=== PATIENT | female | born 1950 | race Caucasian/White ===

== ENCOUNTER → 2016-11-04 | Outpatient (CLI) | payer OTHER ==
[~2016-11-04] MED LIST: ASPCH81X PO; BIOT50006; CALC500C70 PO; CHOL20007 PO; CINN1CAP2; MULT-506 PO; [UNRECOGNIZED DRUG - OTHER]; [UNRECOGNIZED DRUG - REMARK]
[2016-11-04 12:59] LABS: BASO % 0.5 %; BASO ABS # 0.03 K/uL (0-0.2); COMPLETE YES; EOS % 2.9 %; HEMATOCRIT 41.2 % (37-47); LYMPH % 18.2 %; LYMPH ABS # 1.01 K/uL (1.2-3.4); MEAN CELL VOLUME 96.3 fL (80-100); MEAN CORPUSCULAR HEMOGLOBIN 31.1 pg (25-34); MEAN CORPUSCULAR HGB CONC 32.3 g/dl (32-36); MEAN PLATELET VOLUME 10.1 fL (7.4-10.4); MONO % 8.3 %; NEUT % 70.1 %; PLATELET COUNT 249 K/uL (130-400); RED BLOOD COUNT 4.28 M/uL (4.2-5.4); WHITE BLOOD COUNT 5.56 K/uL (4.8-10.8)
[2016-11-04 13:11] LABS: ALT/SGPT 33 U/L (12-78); BLOOD UREA NITROGEN 26 mg/dl (7-18); BUN/CREATININE RATIO 28.2 (10-20); CARBON DIOXIDE 26 mmol/L (21-32); CHLORIDE 108 mmol/L (98-107); CREATININE 0.92 mg/dl (0.60-1.20); GLUCOSE 141 mg/dl (70-99); POTASSIUM 3.9 mmol/L (3.5-5.1); SODIUM 142 mmol/L (136-145)
[2016-11-04 13:19] LABS: CALCIUM 9.5 mg/dl (8.5-10.1)
[2016-11-04 13:20] LABS: LYME DISEASE AB IGG NEG (NEG)
[2016-11-04 13:21] LABS: ALB/GLOB RATIO 1.3 (0.9-2); ALKALINE PHOSPHATASE 71 U/L (45-117); AST/SGOT 20 U/L (15-37)
[2016-11-04 13:23] LABS: LYME DISEASE AB IGM NEG (NEG)
[2016-11-08 00:22] LABS: RAPID PLASMA REAGIN NONREACTIVE (NONREACT)
--- NOTE | 2016-11-10 10:36 | CODING QUERY MEDICAL NECESSITY ---
CQSUPPORTING DIAGNOSIS NEEDED A supporting diagnosis is required for the test/procedure performed on this patient in order for us to be reimbursed by the patient's insurance. Please provide a supporting diagnosis for the following test/procedure listed below next to the test name along with your signature. *If there is no additional diagnosis for this patient that would support the following test/procedure please document that below next to the test/procedure. Test(s)/Procedure(s) that require a supporting diagnosis: DOS 11/04/16 VITAMIN D VITAMIN B12 SCREENING SEXUALLY TRASMITTED DISEASE ORDERED BY VENU NELSON Provider Signature: Date: Thank you Shyanne Cruz Health Information Management Once completed, please kindly fax back to [phone] For questions please call [phone]
== END | disposition home or self-care (01) ==
LOC: C.LAB1850 09:53
PROVIDERS: ATTEND Physician Assistant
DX: M62.569 Muscle wasting and atrophy, not elsewhere classified, unspecified lower leg (principal); R25.3 Fasciculation; R29.898 Other symptoms and signs involving the musculoskeletal system; R29.2 Abnormal reflex

== ENCOUNTER → 2016-12-05 | Outpatient (CLI) | payer OTHER ==
--- NOTE | 2016-12-05 17:16 | DIAGNOSTIC IMAGING REPORT ---
C-SPINE ROUTINE 4 OR 5 VIEWS CLINICAL HISTORY: Left leg weakness. Scoliosis. COMPARISON STUDY: No previous studies for comparison. FINDINGS: Alignment of the cervical spine is anatomic. C7 is slightly obscured. There is moderate disc space narrowing and osteophytosis at C5-C6. There is mild disc space narrowing and osteophytosis at C6-C7. Prevertebral soft tissues are unremarkable. IMPRESSION: 1. No cervical spine fracture or subluxation although C7 slightly obscured on this exam. 2. [id number] multilevel degenerative disc disease and facet arthrosis, most pronounced at C5-C6. Electronically signed by: Tung Verma M.D. 12/05/2016 5:14 PM Dictated Date/Time: 12/05/2016 5:13 PM
--- NOTE | 2016-12-05 17:27 | DIAGNOSTIC IMAGING REPORT ---
THORACIC SPINE 3 VIEWS ROUTINE CLINICAL HISTORY: Left leg weakness. Scoliosis. COMPARISON STUDY: No previous studies for comparison. FINDINGS: There is mild leftward curvature of the thoracic spine. Vertebral body heights are maintained. There is no fracture or suspicious lesion. The spaces are preserved. There is mild endplate osteophytosis. IMPRESSION: 1. Mild leftward curvature of the thoracic spine. 2. No thoracic spine fracture. 3. Minimal multilevel degenerative disc disease of the thoracic spine. Electronically signed by: Tung Verma M.D. 12/05/2016 5:26 PM Dictated Date/Time: 12/05/2016 5:25 PM
--- NOTE | 2016-12-05 17:28 | DIAGNOSTIC IMAGING REPORT ---
L-SPINE MIN 4 VIEWS ROUTINE CLINICAL HISTORY: Left leg weakness. Scoliosis. COMPARISON: Lumbar spine MRI November 14, 2016. FINDINGS: There is mild dextroscoliosis of the lumbar spine. There is no fracture or suspicious lesion. There is mild disc space narrowing with moderate osteophytosis at L2-L3. There is mild multilevel facet arthrosis. IMPRESSION: 1. No acute lumbar spine fracture. 2. Mild dextroscoliosis of the lumbar spine. 3. Mild disc space narrowing with moderate osteophytosis at L2-L3. Electronically signed by: Tung Verma M.D. 12/05/2016 5:27 PM Dictated Date/Time: 12/05/2016 5:26 PM
== END | disposition home or self-care (01) ==
LOC: C.RAD 16:22
PROVIDERS: ATTEND Psychiatry & Neurology Neurology
DX: R29.898 Other symptoms and signs involving the musculoskeletal system (principal); M41.9 Scoliosis, unspecified; M50.322 Other cervical disc degeneration at C5-C6 level

== ENCOUNTER → 2017-01-04 | Outpatient (CLI) | payer OTHER ==
[2017-01-04 09:39] LABS: HEMATOCRIT 42.4 % (37-47); MEAN CELL VOLUME 93.8 fL (80-100); MEAN CORPUSCULAR HEMOGLOBIN 30.5 pg (25-34); MEAN CORPUSCULAR HGB CONC 32.5 g/dl (32-36); MEAN PLATELET VOLUME 9.9 fL (7.4-10.4); PLATELET COUNT 250 K/uL (130-400); RED BLOOD COUNT 4.52 M/uL (4.2-5.4); WHITE BLOOD COUNT 4.27 K/uL (4.8-10.8)
[2017-01-04 10:12] LABS: ESTIMATED AVERAGE GLUCOSE 126 mg/dl; HA1C FLAG Normal (Normal)
[2017-01-04 10:52] LABS: ALT/SGPT 29 U/L (12-78); AST/SGOT 20 U/L (15-37); BLOOD UREA NITROGEN 16 mg/dl (7-18); BUN/CREATININE RATIO 20.1 (10-20); CALCIUM 9.1 mg/dl (8.5-10.1); CARBON DIOXIDE 26 mmol/L (21-32); CHLORIDE 108 mmol/L (98-107); CREATININE 0.81 mg/dl (0.60-1.20); GLUCOSE 94 mg/dl (70-99); POTASSIUM 4.3 mmol/L (3.5-5.1); SODIUM 143 mmol/L (136-145)
[2017-01-04 10:55] LABS: ALB/GLOB RATIO 1.1 (0.9-2); ALKALINE PHOSPHATASE 70 U/L (45-117); CHOLESTEROL 202 mg/dl (0-200); CHOLESTEROL/HDL RATIO 3.3; HDL CHOLESTEROL 61 mg/dl; LDL CHOLESTEROL CALCULATED 118 mg/dl; TRIGLYCERIDES 113 mg/dl (0-150); VERY LOW DENSITY LIPOPROT CALC 23 mg/dl
--- NOTE | 2017-01-11 11:55 | CODING QUERY MEDICAL NECESSITY ---
SUPPORTING DIAGNOSIS NEEDED A supporting diagnosis is required for the test/procedure performed on this patient in order for us to be reimbursed by the patient's insurance. Please provide a supporting diagnosis for the following test/procedure listed below next to the test name along with your signature. *If there is no additional diagnosis for this patient that would support the following test/procedure please document that below next to the test/procedure. Test(s)/Procedure(s) that require a supporting diagnosis: * HEMOGLOBIN A1C DIAGNOSIS: Provider Signature: Date: Thank you Mona Parry [facility] Information Management Once completed, please kindly fax back to [phone] For questions please call [phone]
== END | disposition home or self-care (01) ==
LOC: C.LAB1850 08:40
PROVIDERS: ATTEND Internal Medicine
DX: Z00.00 Encounter for general adult medical examination without abnormal findings (principal); Z13.1 Encounter for screening for diabetes mellitus

== ENCOUNTER 2017-01-20 08:44 | Day surgery (SDC) | payer OTHER ==
[~2017-01-20] VITALS: Ht 172.7 cm; Wt 61.0 kg
[2017-01-20] VITALS (8 sets, daily range): BP systolic 106–140; BP diastolic 63–77; PULSE 65–89; TEMP 36.6–37; O2SAT 96–99; Ht 172.7 cm; Wt 61.0 kg
[2017-01-20] MEDS ORDERED: CALC500C70 PO (09:04)
[2017-01-20] MEDS ORDERED: ASPCH81X PO (09:04)
[2017-01-20] MEDS ORDERED: CHOL20007 PO (09:04)
[2017-01-20] MEDS ORDERED: [UNRECOGNIZED DRUG - REMARK] (09:04)
[2017-01-20] MEDS ORDERED: CINN1CAP2 (09:04)
[2017-01-20] MEDS ORDERED: BIOT50006 (09:04)
[2017-01-20] MEDS ORDERED: MULT-506 PO (09:04)
[2017-01-20] MEDS ORDERED: [UNRECOGNIZED DRUG - OTHER] (09:25)
[2017-01-20 10:46] LABS: CSF CHEMISTRY TUBE # 1
--- NOTE | 2017-01-20 10:48 | DIAGNOSTIC IMAGING REPORT ---
LUMBAR PUNCTURE DIAGNOSTIC CLINICAL HISTORY: 66 years-old Female presenting with leg weakness. COMPARISON: MR from 12/16/2016. PROCEDURE: The procedure, risks and benefits were discussed with the patient including the risk of spinal headache, bleeding and infection. The patient agreed to the procedure and informed written consent was obtained. The procedure was performed by Dr. Campos following a timeout. The L2-3 interspinous space was targeted. Skin overlying the space was prepped and draped in the usual aseptic fashion and local anesthesia was achieved with 1% lidocaine. Under intermittent fluoroscopic guidance, a 20-gauge x 3 1/2 in. Sprotte needle was inserted into the thecal sac. Opening pressure was obtained and prone positioning, which measured 12 cmH2O. A total of 10 mL of clear, colorless cerebral spinal fluid was obtained and spread amongst 4 vials. The patient tolerated the procedure well. There were no immediate complications. The specimens were sent to the laboratory at the request of the referring physician. Reference range: Normal opening pressure 60-250 cmH2O (95% reference interval for lateral decubitus positioning). Fluoroscopy dosage: Not available. mGy. Fluoroscopy time: 0.6 minutes. Number of fluoroscopic spot images: 0. IMPRESSION: 1. Successful fluoroscopic guided lumbar puncture with removal of 10 mL of clear, colorless cerebral spinal fluid. No immediate complications. 2. Normal opening pressure. Electronically signed by: Matt Campos M.D. 01/20/2017 10:47 AM Dictated Date/Time: 01/20/2017 10:46 AM
[2017-01-20] MEDS ORDERED: ACETAMINOPHEN 500 MG TAB PO PRN (11:00)
--- NOTE | 2017-01-20 11:02 | Discharge Instructions ---
Discharge Instructions Procedure Procedure Date: Jan 20, 2017. Reason for visit: Demyelinating Disease W/Opening Pressure. Discharge Discharge Date: Jan 20, 2017. Discharge Diagnosis: Successful fluoro-guided lumbar puncture with opening pressure Medications Restart Stopped Medication(s): Resume home meds. Instructions Activity Recommendations: No limitations Return to School/Work: no limitations Recommended Home Diet: No Limitations Provider Instructions: Lumbar Puncture performed with Fluoroscopic guidance [ L2-3] level with [22G 3.5 inch ] needle. No complications. Allergies Uncoded Allergies: NONE (Allergy, Unknown, 12/12/04) Danna Roca Recommendations: Call your doctor if: * Temperature above 101 degrees * Pain not relieved by pain medicine ordered * There is increased drainage or redness from any incision * You have any unanswered questions or concerns. Your Doctors Instructions noted above were prepared by provider Matt Campos. Patient Signature Section: Patient Instructions Signature Page Pati Calvo Patient (or Guardian) Signature/Date: I have read and understand the instructions given to me by my caregivers. Caregiver/RN/Doctor Signature/Date: The above-named patient and/or guardian has received patient instructions on this date. + Original Patient Signature Page (only) stays with chart. Please make copy for patient.
[2017-01-20 11:15] LABS: CSF TOTAL PROTEIN 33.6 mg/dl (15.0-45.0)
[2017-01-20 11:23] LABS: CSF APPEARANCE CLEAR; CSF COLOR COLORLESS; CSF XANTHOCHROMIC NO XANTHOCHROMIA
[2017-02-02 14:04] LABS: ALBUMIN 4.7 g/dL (3.2-4.6); IGG CSF 1.7 mg/dL (0.8-7.7); IGG SERUM 999 mg/dL (694-1618); LYME DNA PCR CSF OR SYNOVIAL Not detected (Not Detected); LYME DNA SOURCE CSF; LYME IGG CSF NO BANDS DETECTED; LYME IGM CSF NO BANDS DETECTED; MYELIN BASIC PROTEIN 663 <2.0 mcg/L (0.0-4.0)
== END 2017-01-20 13:53 | disposition home or self-care (01) ==
LOC: C.ACU 08:44
PROVIDERS: ATTEND Psychiatry & Neurology Neurology
DX: R53.1 Weakness (principal); G37.9 Demyelinating disease of central nervous system, unspecified

== ENCOUNTER → 2017-02-15 | Outpatient (CLI) | payer OTHER ==
[~2017-02-15] MED LIST changes: -[UNRECOGNIZED DRUG - REMARK]
[2017-02-24 12:40] LABS: ANTI-CENTROMERE AB <1.0 NEG AI (<1.0 NEG); ANTI-SS-A <1.0 NEG AI (<1.0 NEG); ANTI-SS-B <1.0 NEG AI (<1.0 NEG); DNA ds CRITHIDIA NEGATIVE (NEGATIVE); GLIADIN DEAMIDATED IgA AB 4 UNITS (<20); GLIADIN DEAMIDATED IgG AB 5 UNITS (<20); MICROSOMAL AB 79 IU/ML (<9); MYELOPEROXIDASE AB <1.0 AI (<1.0); RETICULIN IgA AB Negative (Negative); Sm Antibody <1.0 NEG AI (<1.0 NEG)
== END | disposition home or self-care (01) ==
LOC: C.LAB 18:29
PROVIDERS: ATTEND Psychiatry & Neurology Neurology
DX: G37.9 Demyelinating disease of central nervous system, unspecified (principal)

== ENCOUNTER → 2017-02-22 | Outpatient (CLI) | payer OTHER ==
--- NOTE | 2017-02-22 14:15 | MAMMOGRAPHY REPORT ---
BILATERAL DIGITAL SCREENING MAMMOGRAM WITH CAD: 02/22/2017 CLINICAL HISTORY: Routine screening. Patient has no complaints. TECHNIQUE: Current study was also evaluated with a Computer Aided Detection (CAD) system. Bilateral CC and MLO views were obtained. COMPARISON: Comparison is made to exams dated: 02/22/2016 mammogram, 02/17/2014 mammogram, 02/18/2015 m ammogram, 02/13/2013 mammogram, 02/07/2012 mammogram, and 02/04/2011 ultrasound - [facility]. BREAST COMPOSITION: The tissue of both breasts is heterogeneously dense, which may obscure small mas ses. FINDINGS: No suspicious masses, calcifications, or areas of architectural distortion are noted in ei ther breast. There has been no significant interval change compared to prior exams. Scattered bilater al benign-appearing calcifications are not significantly changed. Left subareolar asymmetry on the c c view is stable dating back to at least the 2008 exam. Left superior breast asymmetry on the MLO vi ew is also stable. IMPRESSION: ACR BI-RADS CATEGORY 2: BENIGN There is no mammographic evidence of malignancy. A 1 year screening mammogram is recommended. The pa tient will receive written notification of the results. Approximately 10% of breast cancers are not detected with mammography. A negative mammographic report should not delay biopsy if a clinically suggestive mass is present. Dia Velez M.D. /:02/22/2017 12:45:18 Salesperson Furniture: Edmund Brown, M, [facility] letter sent: Normal 1/2 BI-RADS Code: ACR BI-RADS Category 2: Benign
== END | disposition home or self-care (01) ==
LOC: C.MAMM 10:39
PROVIDERS: ATTEND Obstetrics & Gynecology
DX: Z12.31 Encounter for screening mammogram for malignant neoplasm of breast (principal)

== ENCOUNTER → 2017-04-06 | Outpatient (CLI) | payer OTHER ==
[2017-04-06 17:59] LABS: BLOOD UREA NITROGEN 20 mg/dl (7-18); BUN/CREATININE RATIO 25.5 (10-20); CALCIUM 9.3 mg/dl (8.5-10.1); CARBON DIOXIDE 23 mmol/L (21-32); CHLORIDE 109 mmol/L (98-107); CREATININE 0.77 mg/dl (0.60-1.20); GLUCOSE 99 mg/dl (70-99); POTASSIUM 4.1 mmol/L (3.5-5.1); SODIUM 141 mmol/L (136-145)
[2017-04-06 18:00] LABS: PHOSPHORUS 3.4 mg/dl (2.5-4.9)
== END | disposition home or self-care (01) ==
LOC: C.LAB1850 16:22
PROVIDERS: ATTEND Psychiatry & Neurology Neurology
DX: R29.898 Other symptoms and signs involving the musculoskeletal system (principal); R93.8 Abnormal findings on diagnostic imaging of other specified body structures

== ENCOUNTER → 2017-06-09 | Outpatient (CLI) | payer OTHER ==
[2017-06-13 16:32] LABS: METHYLMALONIC ACID 173 NMOL/L (87-318)
== END | disposition home or self-care (01) ==
LOC: C.LAB1850 15:40
PROVIDERS: ATTEND Physical Medicine & Rehabilitation Spinal Cord Injury Medicine
DX: G82.20 Paraplegia, unspecified (principal); G35 Multiple sclerosis

== ENCOUNTER → 2017-10-26 | Outpatient (CLI) | payer OTHER | END | disposition home or self-care (01) | LOC: C.MAMM 07:59 | PROVIDERS: ATTEND Internal Medicine | DX: M81.0 Age-related osteoporosis without current pathological fracture (principal); G35 Multiple sclerosis ==